=== PATIENT | male | born 1980 | race Caucasian/White ===

== ENCOUNTER 2022-01-09 12:57 | Emergency (ER) | payer OTHER ==
[2022-01-09 13:34] LABS: BILIRUBIN NEGATIVE (NEGATIVE); BLOOD 2+ Ery/uL (NEGATIVE); CLARITY CLEAR (CLEAR); COLOR YELLOW (YELLOW); GLUCOSE (U) NORMAL (NORMAL); LEUKOCYTES NEGATIVE Leu/uL (NEGATIVE); NITRITE NEGATIVE (NEGATIVE); PROTEIN NEGATIVE (NEGATIVE); UROBILINOGEN 0.2 mg/dL (0.2-1.0); pH 5.5 (5.0-9.0)
[2022-01-09 13:42] LABS: BACTERIA TRACE
[2022-01-09 13:48] LABS: BASOPHIL 0.3 % (0-2); EOSINOPHIL 1.2 % (0-5); HCT 38.2 % (42.0-52.0); HGB 13.5 g/dl (13.2-18.0); LYMPHOCYTE 17.5 % (15-48); MCH 31.9 pg (25.0-31.0); MCHC 35.3 g/dL (32.0-36.0); MCV 90.3 fL (78.0-100.0); MONOCYTE 9.5 % (0-12); MPV 9.5 fL (6.0-9.5); NEUTROPHIL 71.4 % (41-80); NRBC 0; PLT 192 K/uL (150-400); RBC 4.23 M/uL (4.70-6.00); RDW 12.2 % (11.5-14.0); WBC 7.6 K/uL (4.0-10.5)
[2022-01-09 14:26] LABS: ALBUMIN 3.8 g/dL (3.4-5.0); ALKALINE PHOSHATASE 55 U/L (46-116); ALT 388 U/L (16-63); AST 747 U/L (15-37); BILIRUBIN - TOTAL 0.9 mg/dL (0.2-1.0); BUN 31 mg/dL (7-18); BUN/CREAT RATIO (CALC) 12.7 RATIO; CHLORIDE 104 mmol/L (98-107); CO2 (BICARBONATE) 30 mmol/L (21-32); CPK >7000 U/L (39-308); CREATININE 2.45 mg/dL (0.67-1.17); GLOBULIN (CALCULATION) 2.8 g/dL; GLUCOSE 154 mg/dL (74-106); POTASSIUM 3.4 mmol/L (3.5-5.1); TOTAL PROTEIN 6.6 g/dL (6.4-8.2)
== END 2022-01-09 16:55 | disposition left against medical advice (07) ==
LOC: FER 12:57 → FMS 15:11 → FER 15:11
PROVIDERS: Nurse Practitioner Family
DX: M62.82 Rhabdomyolysis (principal); F17.210 Nicotine dependence, cigarettes, uncomplicated; E11.9 Type 2 diabetes mellitus without complications; Z53.8 Procedure and treatment not carried out for other reasons; Z20.822 Contact with and (suspected) exposure to COVID-19
CPT/HCPCS: 36415; 80053; 81001; 82550; 85025; 99283; J7030; U0002